=== PATIENT | female | born 1950 | race Caucasian/White ===

== ENCOUNTER → 2017-09-16 17:00 | Outpatient (CLI) | payer BC | END | disposition home or self-care (01) | LOC: D.MAMMO 08-08 15:00 → D.US 08-08 15:30 → D.MAMMO 09:30 | DX: Z12.31 Encounter for screening mammogram for malignant neoplasm of breast (principal) ==

== ENCOUNTER → 2018-02-27 11:43 | Outpatient (CLI) | payer MEDICARE, OTHER | END | disposition home or self-care (01) | LOC: D.MRI 11:30 | DX: M54.5 Low back pain (principal) ==